=== PATIENT | female | born 1955 | race African-American/Black ===

== ENCOUNTER 2016-11-02 17:02 | Emergency (ER) | payer OTHER ==
--- NOTE | 2016-11-02 17:21 | PDOC ---
History of Present Illness - General Chief Complaint: Lightheaded Stated Complaint: DIZZINESS Time Seen by Provider: 11/02/16 17:21 History Source: Patient Exam Limitations: No Limitations - History of Present Illness Initial Comments: 61 year old female with PMH of HTN presenting with lightheadedness for a few hours. She was at work earlier today and began to feel a bit weak and lightheaded without any other symptoms. Denies LOC, presyncopal sensation, palpitations, SOB, diaphoresis, chest pain, or any other sensations. Her diet is good and she has been hydrating well. Has no current life stressors. Does nto smoke or drink with any frequency. 11/02/16 19:43 Past History - Past Medical History Allergies/Adverse Reactions: Allergies Allergy/AdvReac Type Severity Reaction Status Date / Time shellfish derived Allergy Unknown Verified 11/02/16 17:54 Home Medications: Ambulatory Orders Amlodipine Besylate/Benazepril [Lotrel 10-20 mg Capsule] 1 cap PO DAILY Budesonide/Formeterol Fumarate [SYMBICORT 80/4.5mcg -] 1 inh PO DAILY 11/02/16 Asthma: Yes HTN: Yes Suicide Attempt (Hx): No - Surgical History Abdominal Surgery: No Appendectomy: No Cardiac Surgery: No Cholecystectomy: No Gastric Stapling: No - Psycho/Social/Smoking Cessation Hx Anxiety: No Suicidal Ideation: No Smoking Status: Yes Smoking History: Former smoker Years of Tobacco Use: 7 Number of Cigarettes Smoked Daily: 0 Review of Systems - Review of Systems Constitutional: No: Chills, Diaphoresis, Fever HEENTM: No: Blurred Vision, Tearing Respiratory: No: Cough, Orthopnea, Shortness of Breath Cardiac (ROS): No: Chest Pain, Edema, Irregular Heart Rate ABD/GI: No: Constipated, Diarrhea, Difficulty Swallowing, Nausea, Poor Appetite : No: Burning, Dysuria, Frequency Musculoskeletal: No: Muscle Pain, Muscle Weakness Integumentary: No: Bruising, Dryness, Erythema Neurological: Yes: Weakness. No: Headache, Numbness, Paresthesia, Tingling Psychiatric: No: Anxiety, Depression *Physical Exam - Physical Exam General Appearance: Yes: Nourished, Appropriately Dressed. No: Apparent Distress HEENT: positive: EOMI, ANGIE, Normal ENT Inspection Neck: positive: Trachea midline, Normal Thyroid. negative: Tender Respiratory/Chest: positive: Lungs Clear, Normal Breath Sounds. negative: Chest Tender, Respiratory Distress, Accessory Muscle Use Cardiovascular: positive: Regular Rhythm, Regular Rate, S1, S2. negative: Edema , JVD, Murmur Gastrointestinal/Abdominal: positive: Normal Bowel Sounds, Flat, Soft. negative : Tender, Organomegaly Extremity: positive: Normal Capillary Refill, Normal Inspection Integumentary: positive: Normal Color, Dry, Warm Neurologic: positive: Fully Oriented, Alert, Normal Mood/Affect ED Treatment Course - LABORATORY CBC & Chemistry Diagram: 11/02/16 18:34 11/02/16 18:34 Medical Decision Making - Medical Decision Making 61 year old hypertensive female presenting isolated lightheadedness for the past few hours that have since resolved. Denies any inciting events and currently feels well. EKG unconcerning NSR. Orthostatics negative. Will check CBC, BMP and send home. 11/02/16 19:49 11/02/16 19:54 11/02/16 19:55 BMP indicating possible dehydration with elevated chloride and creatinine. Will send patient home with return precautions and hydration advice. *DC/Admit/Observation/Transfer Diagnosis at time of Disposition: Lightheadedness - Discharge Dispostion Disposition: HOME Condition at time of disposition: Improved Admit: No - Referrals Referrals: STAFF,NOT ON [Primary Care Provider] - - Patient Instructions Additional Instructions: You were seen for being lightheaded. We checked your heart rhythm and that looked fine. We checked your blood pressure and that also was fine. We beleive it may have been from some temporary dehydration so make sure to stay hydrated throughout the day. Please return if you have any further issues. - Attestations Physician Attestion: 11/02/16 19:51 I, Dr. Roya Akins, attest that this document has been prepared under my direction and personally reviewed by me in its entirety. I further attest, that it accurately reflects all work, treatment, procedures and medical decision -making performed by me.
[2016-11-02 17:54] VITALS: BP 167/76; PULSE 94; TEMP 98.6; BMI 25.3
[2016-11-02 19:08] LABS: BASOPHIL 0.6 % (0-2.0); EOSINOPHIL 1.4 % (0-4.5); MCH 25.4 pg (25.7-33.7); MCHC 31.6 g/dl (32.0-36.0); MEAN CELL VOLUME 80.3 fl (80-96); MEAN PLT VOLUME 10.3 fl (7.5-11.1); PLATELET COUNT 187 K/MM3 (134-434); RDW 16.2 % (11.6-15.6); WHITE BLOOD COUNT 10.5 K/mm3 (4.0-10.0)
[2016-11-02 19:35] LABS: ALBUMIN 4.1 g/dl (3.4-5.0); ALK PHOS 142 U/L (45-117); ANION GAP 5 (8-16); BILIRUBIN,TOTAL 0.2 mg/dL (0.2-1.0); CALCIUM 9.7 mg/dL (8.5-10.1); CO2 26 mmol/L (21-32); CREATININE 1.1 mg/dL (0.55-1.02); GLUCOSE,RANDOM 99 mg/dL (74-106); SGOT/AST 16 U/L (15-37); SGPT/ALT 23 U/L (12-78); TOT PROT 7.9 g/dl (6.4-8.2)
--- NOTE | 2016-11-02 20:00 | PDOC ---
Attending Attestation - Resident Resident Name: Roya Akins - ED Attending Attestation I have performed the following: I have examined & evaluated the patient, The case was reviewed & discussed with the resident, I agree w/resident's findings & plan, Exceptions are as noted - HPI HPI: 11/07/16 19:54 *Physical Exam General Appearance: Yes: Appropriately Dressed. No: Apparent Distress, Intoxicated HEENT: positive: EOMI, ANGIE, Normal ENT Inspection, Normal Voice, TMs Normal, Pharynx Normal. negative: Pale Conjunctivae, Photophobia, Scleral Icterus (R), Scleral Icterus (L) Neck: positive: Trachea midline, Normal Thyroid, Supple. negative: Tender, Rigid, Carotid bruit, Stridor, Lymphadenopathy (R), Lymphadenopathy (L), Thyromegaly Respiratory/Chest: positive: Lungs Clear, Normal Breath Sounds. negative: Chest Tender, Respiratory Distress, Accessory Muscle Use, Labored Respiration, RES, Crackles, Rales, Rhonchi, Stridor, Wheezing, Dullness Cardiovascular: positive: Regular Rhythm, Regular Rate, S1, S2. negative: Edema , JVD, Murmur, Bradycardia, Tachycardia Vascular Pulses: Dorsalis-Pedis (R): 2+, Doralis-Pedis (L): 2+ Gastrointestinal/Abdominal: positive: Normal Bowel Sounds, Flat, Soft. negative : Tender, Organomegaly, Pulsatile Mass, Increased Bowel Sounds, Decreased BS, Distended, Guarding, Rebound, Hernia, Hepatomegaly, Spleenomegaly Lymphatic: negative: Adenopathy, Tenderness Musculoskeletal: positive: Normal Inspection. negative: CVA Tenderness, Decreased Range of Motion Extremity: positive: Normal Capillary Refill, Normal Inspection, Normal Range of Motion, Pelvis Stable. negative: Tender, Pedal Edema, Swelling, Erythema Integumentary: positive: Normal Color, Dry, Warm. 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 negative: EOM Palsy, Facial Droop, Sensory Deficit - Physicial Exam PE: 11/02/16 19:58 *Physical Exam General Appearance: Yes: Appropriately Dressed. No: Apparent Distress, Intoxicated HEENT: positive: EOMI, ANGIE, Normal ENT Inspection, Normal Voice, TMs Normal, Pharynx Normal. negative: Pale Conjunctivae, Photophobia, Scleral Icterus (R), Scleral Icterus (L) Neck: positive: Trachea midline, Normal Thyroid, Supple. negative: Tender, Rigid, Carotid bruit, Stridor, Lymphadenopathy (R), Lymphadenopathy (L), Thyromegaly Respiratory/Chest: positive: Lungs Clear, Normal Breath Sounds. negative: Chest Tender, Respiratory Distress, Accessory Muscle Use, Labored Respiration, RES, Crackles, Rales, Rhonchi, Stridor, Wheezing, Dullness Cardiovascular: positive: Regular Rhythm, Regular Rate, S1, S2. negative: Edema , JVD, Murmur, Bradycardia, Tachycardia Vascular Pulses: Dorsalis-Pedis (R): 2+, Doralis-Pedis (L): 2+ Gastrointestinal/Abdominal: positive: Normal Bowel Sounds, Flat, Soft. negative : Tender, Organomegaly, Pulsatile Mass, Increased Bowel Sounds, Decreased BS, Distended, Guarding, Rebound, Hernia, Hepatomegaly, Spleenomegaly Lymphatic: negative: Adenopathy, Tenderness Musculoskeletal: positive: Normal Inspection. negative: CVA Tenderness, Decreased Range of Motion Extremity: positive: Normal Capillary Refill, Normal Inspection, Normal Range of Motion, Pelvis Stable. negative: Tender, Pedal Edema, Swelling, Erythema Integumentary: positive: Normal Color, Dry, Warm. 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 negative: EOM Palsy, Facial Droop, Sensory Deficit - Medical Decision Making 11/02/16 19:58 Patient feeling better. Labs stable. Pt to be discharged. Advised to follow up with her pcp. 11/07/16 19:47 Discharge Disposition - Diagnosis Lightheadedness - Discharge Dispostion Disposition: HOME Condition at time of disposition: Good Admit: No - Referrals Referrals: STAFF,NOT ON [Primary Care Provider] - - Patient Instructions Additional Instructions: You were seen for being lightheaded. We checked your heart rhythm and that looked fine. We checked your blood pressure and that also was fine. We beleive it may have been from some temporary dehydration so make sure to stay hydrated throughout the day. Please return if you have any further issues. - Post Discharge Activity
--- NOTE | 2016-11-03 10:18 | EKG ---
Test Reason : Blood Pressure : / mmHG Vent. Rate : 091 BPM Atrial Rate : 091 BPM P-R Int : 126 ms QRS Dur : 080 ms QT Int : 354 ms P-R-T Axes : 049 053 014 degrees QTc Int : 435 ms NORMAL SINUS RHYTHM NORMAL ECG NO PREVIOUS ECGS AVAILABLE Confirmed by MD ELAYNE, RUFUS ([id number]) on 11/03/2016 10:18:15 AM Referred By: Confirmed By:RUFUS HOLLY MD
== END 2016-11-02 20:45 | disposition home or self-care (01) ==
LOC: JER 17:02
DX: R42 Dizziness and giddiness (principal); I10 Essential (primary) hypertension; J45.909 Unspecified asthma, uncomplicated
CPT/HCPCS: 36415; 80053; 85025; 93005; 93010; 99281-25